=== PATIENT | female | born 1960 | race Caucasian/White ===

== ENCOUNTER 2017-05-23 15:38 | Emergency (ER) | payer OTHER ==
--- NOTE | 2017-05-23 16:15 | UC ---
Knee Pain HPI - HPI Summary HPI Summary: Pt presents for evaluation of right knee. Pt states this morning at work, she tripped landing on both knees. Pt states since this time, pt with progressive discomfort on right lateral knee. Pt with progressive limp through the day. no analgesia taken. + ice applied. mild edema. no ecchymosis. No other injuries. No open wounds. Pt paresthesias. no h/o similar pt's medications reviewed this visit - History of Current Complaint Stated Complaint: WC-RIGHT KNEE INJ Time Seen by Provider: 05/23/17 15:55 Hx Obtained From: Patient ?: No Onset/Duration: Gradual Onset, Lasting Hours Severity Initially: Mild Severity Currently: Mild Character: Aching Aggravating Factor(s): Movement, Weight Bearing, Prolonged Standing Alleviating Factor(s): Rest Associated Signs And Symptoms: Positive: Swelling. Negative: Fever, Weakness, Numbness, Tingling - Allergies/Home Medications Allergies/Adverse Reactions: Allergies Allergy/AdvReac Type Severity Reaction Status Date / Time No Known Allergies Allergy Verified 05/23/17 16:16 PMH/Surg Hx/FS Hx/Imm Hx Previously Healthy: No - Surgical History Surgical History: Yes Surgery Procedure, Year, and Place: REMOVAL OF LIPOMA AGE 4. TONSILLECTOMY. ORAL SURGERY - Social History Occupation: Employed Full-time Lives: With Family Alcohol Use: None Substance Use Type: None Smoking Status (MU): Never Smoked Tobacco - Immunization History Most Recent Influenza Vaccination: none Review of Systems Constitutional: Negative All Other Systems Reviewed And Are Negative: Yes Physical Exam Triage Information Reviewed: Yes Appearance: Well-Appearing, No Pain Distress, Well-Nourished Vital Signs Reviewed: Yes ENT Exam: Normal ENT: Positive: Hearing grossly normal Neck exam: Normal Neck: Positive: Supple Respiratory: Positive: No respiratory distress, No accessory muscle use Cardiovascular: Positive: Other: - 2+ popliteal Musculoskeletal: Positive: Other: - + SLE + flex/ext knee/ankle + great toe extension/flexion Neg lateral joint laxity neg ant/posterior drawer Neurological: Positive: Other: - + gross sensation throughout Psychological Exam: Normal Skin Exam: Normal Diagnostics - Radiology No standard instances Radiology Interpretation Completed By: Radiologist - nad Re-Evaluation - Re-Evaluation First Eval Comment: reviewed imaging. shaun/crutches Knee Pain Course/Dx - Course Course Of Treatment: Pt with pain lateral aspect right joint line. mild edema. no laxity of joints. image. crutches. motrin/apap. ice. elevate. f/u with ortho for continued discomfort - Differential Dx/Diagnosis Provider Diagnoses: right knee sprain, right knee contusion Discharge - Sign-Out/Discharge Documenting (check all that apply): Discharge - Discharge Plan Condition: Stable Disposition: HOME Patient Education Materials: Knee Sprain (ED), Contusion in Adults (ED) Forms: *Work Release Referrals: Janeth Reynoso MD [Primary Care Provider] - Rakesh Peres MD [Medical Doctor] - 5 Days Additional Instructions: -wear shaun wrap for comfort and support - pain gets worse for the firs 36-48 hours after any injury - this is normal -apply ice (20 min at a time) every 2-3 hours for the next 2 days -use crutches until you can walk normally without a limp -Elevate your leg - this will help with swelling and pain - Alternate ibuprofen (advil, Motrin) 600mg and tylenol every 3 hours for pain. Take with food. Do NOT take for more than 4-5 days - It is recommended you schedule a follow-up appointment with your primary doctor or the orthopedic provider for later this week. If you symptoms improve, okay to cancel this appointment -Contact your doctor or return with questions or concerns - Billing Disposition and Condition Condition: STABLE Disposition: HOME
[2017-05-23 16:23] VITALS: BP 126/74
[2017-05-23] MEDS ORDERED: Ibuprofen TAB* 600 MG PO ONE (16:41)
--- NOTE | 2017-05-23 17:02 | RAD ---
INDICATION: Right knee pain COMPARISON: None TECHNIQUE: AP, lateral, tunnel, and sunrise views were obtained. FINDINGS: The bony structures, joint spaces, and soft tissues are normal for age. IMPRESSION: NEGATIVE EXAMINATION
== END 2017-05-23 17:15 | disposition home or self-care (01) ==
LOC: UCCORT 15:38
DX: S83.91XA Sprain of unspecified site of right knee, initial encounter (principal); S80.01XA Contusion of right knee, initial encounter; W01.0XXA Fall on same level from slipping, tripping and stumbling without subsequent striking against object, initial encounter; Y92.9 Unspecified place or not applicable
CPT/HCPCS: 99213; A9270-GY; G0463